=== PATIENT | female | born 1940 | race Caucasian/White ===

== ENCOUNTER → 2017-04-12 | Day surgery (SDC) | payer MEDICARE ==
[2017-04-08 15:26] LABS: ANION GAP 9.7 mmol/L (8-16); BLOOD UREA NITROGEN 15 mg/dL (7-26); BUN/CREATININE RATIO 17 (6-25); CALCIUM 9.1 mg/dL (8.4-10.2); CARBON DIOXIDE 29 mmol/L (22-29); CHLORIDE 107 mmol/L (98-107); CREATININE, SERUM 0.87 mg/dL (0.57-1.11); EST GLOMERULAR FILTRATION RATE > 60 ML/MIN (60-); GLUCOSE 96 mg/dL (74-118); POTASSIUM 3.7 mmol/L (3.5-5.1); SODIUM 142 mmol/L (136-145)
[~2017-04-12] MED LIST: ASPIRIN81 MG PO; BELLADONNA/OPIUM 60 MG SUPP PR ONE; CEFTRIAXONE SOD 1 GM VIAL ONE; CRESTOR10 MG PO; DEXAMETHASONE SOD PHOS INJ 4 MG/ML VIAL ONE; FENTANYL CITRATE/PF 100MCG/2 ML INJ ONE; GLYCOPYRROLATE INJ 1MG/ 5 ML SYR ONE; IOPAMIDOL 610MG/1ML 300 MG/ML VIAL IV ONE; LIDOCAINE HCL 2% LOCAL INJ 5 ML SDV VIAL INJ ONE; MIDAZOLAM HCL 2 MG/2 ML VIAL ONE; MULTI-VITAMIN1 EACH PO; ONDANSETRON HCL INJ 2 MG/ML VIAL ONE; PHENYLEPHRINE HCL 1% 10 MG/ML VIAL ONE; PREMARIN0.625 MG PO; PROPOFOL IV EMULSION 10 MG/ML 20 ML VIAL ONE; SEVOFLURANE INHAL SOLN 250 ML PEN BTL ONE; STOOL SOFTENER PO; XANAX; XANAX0.25 MG PO
--- NOTE | 2017-04-12 07:40 | Diagnostic Imaging Report ---
PROCEDURE:X-RAY ABDOMEN - KUB COMPARISON:CT abdomen and pelvis 02/22/2017. INDICATIONS:PRE OPERATIVE CHEST X-RAY FOR KIDNEY STONES FINDINGS: There is a non-obstructed bowel-gas pattern. Bilateral nephrolithiasis. There are no calcifications projected over the expected course of the ureters or bladder. Phleboliths are present in the pelvis. There are no acute osseous abnormalities. The lung bases are clear. CONCLUSION: Bilateral nephrolithiasis. Dictated by: Patrice Holland M.D. on 04/12/2017 at 7:49 Electronically approved by: Patrice Holland M.D. on 04/12/2017 at 7:49
--- NOTE | 2017-05-30 04:00 | Operative Report ---
DATE OF PROCEDURE: April 12, 2017 PREOPERATIVE DIAGNOSES POSTOPERATIVE DIAGNOSES OPERATIONS PERFORMED 1. Right extracorporeal shockwave lithotripsy (separate staged procedure for the right nephrolithiasis). 2. Cystourethroscopy with bilateral ureteral catheterization and retrograde ureteropyelography. 3. Interpretation of retrograde ureteropyelography. 4. Pelvic examination under anesthesia. ANESTHESIA: General. COMPLICATIONS: None. CLINICAL SUMMARY: Nicole Zhou is a 75-year-old woman with bilateral nephrolithiasis that is recurrent. She has microhematuria. She is brought for lithotripsy. She is aware the risks of bleeding, infection, injury to adjacent structures, need for additional procedures, and elected to proceed. OPERATIVE PROCEDURE IN DETAIL: Informed consent for verified. Nicole Zhou was properly identified and taken to the operating room and placed on the lithotripsy table in the supine position. Anesthesia was uneventfully begun. The patient's right mid to lower pole nephrolithiasis was localized with biplanar fluoroscopy. A total of 3000 shocks were delivered with excellent fragmentation. The patient was carefully and gently repositioned in the dorsal lithotomy position with all pressure points well-padded. Her genitalia were prepared and draped in the usual sterile fashion. The 22.5-English cystoscope sheath with obturator in place was atraumatically inserted into the patient's urethra and the bladder was drained. Panendoscopy of the urinary bladder revealed no suspicious mucosal lesions. No tumors. No stones and no diverticula. Normally positioned and configured ureteral orifices were identified. Ureteral catheter was used cannulate each ureter and retrograde ureteropyelograms were performed. Interpretation of retrograde ureteropyelography. Contrast was instilled in a retrograde fashion bilaterally. The region of lithotripsy on the right hand side was noted to be in the right mid to lower poles. The left-sided stone appeared to be located in the upper hira. It was in the lower hira on the previously performed CT scan. Unobstructed drainage was observed bilaterally fluoroscopically. The patient's bladder was then drained. The cystoscope was withdrawn. Pelvic examination under anesthesia revealed a mild cystocele with atrophic (senile) vaginitis. No abnormal palpable pelvic masses could be identified. There were no suspicious lesions. The patient was then uneventfully reversed from anesthesia and taken to the recovery room in stable condition. There were no complications to the procedure. She tolerated the procedure well. Plans will be to return the patient to the operating room at which point in time will plan on performing most likely a left ESWL. Job#: [id number] RI
== END | disposition home or self-care (01) ==
LOC: OR 08:35
PROVIDERS: ATTEND Urology
DX: N20.0 Calculus of kidney (principal); Z01.812 Encounter for preprocedural laboratory examination; N81.10 Cystocele, unspecified; N95.2 Postmenopausal atrophic vaginitis; E78.5 Hyperlipidemia, unspecified; F41.9 Anxiety disorder, unspecified; Z79.82 Long term (current) use of aspirin; Z87.891 Personal history of nicotine dependence
CPT/HCPCS: 36415; 50590; 74000; 80048; 83970; 84550; J0696; J1100; J2001; J2250; J2370; J2405; Q9967; 74018

== ENCOUNTER → 2017-05-03 | Day surgery (SDC) | payer MEDICARE ==
[~2017-05-03] MED LIST changes: -BELLADONNA/OPIUM 60 MG SUPP PR ONE; -CEFTRIAXONE SOD 1 GM VIAL ONE; -GLYCOPYRROLATE INJ 1MG/ 5 ML SYR ONE; -IOPAMIDOL 610MG/1ML 300 MG/ML VIAL IV ONE; -PHENYLEPHRINE HCL 1% 10 MG/ML VIAL ONE
--- OUTSIDE RECORDS SUMMARY | 2017-05-03 06:08 | XMS REPORT ---
Author Author [facility] Address Unknown Phone Unavailable Care Team Providers Care Yard Jacker Name Role Phone MADISON KRAMER Unavailable Unavailable Problems This patient has no known problems. Allergies, Adverse Reactions, Alerts This patient has no known allergies or adverse reactions. Medications This patient has no known medications. Results Test Description Test Time Test Comments Text Results Atomic Results Result Comments ABDOMEN-1VIEW (KUB) [place] [address] Patient Name: KOJO WILSON MR #: [id number] : 1940 Age/Sex: 76/F Req # : [id number] Adm Physician: Ordered by: MADISON KRAMER MD Report #: [id number] Location: OR Room/Bed: Procedure: [id number] DX/ABDOMEN-1VIEW (KUB) Exam Date: 04/12/17 Exam Time : 0650 REPORT STATUS: Signed PROCEDURE: X-RAY ABDOMEN - KUB COMPARISON: CT abdomen and pelvis 02/22/2017. INDICATIONS: PRE OPERATIVE CHEST X-RAY FOR KIDNEY STONES FINDINGS: There is a non- obstructed bowel-gas pattern. Bilateral nephrolithiasis. There are no calcifications projected over the expected course of the ureters or bladder. Phleboliths are present in the pelvis. There are no acute osseous abnormalities. The lung bases are clear. CONCLUSION: Bilateral nephrolithiasis. Dictated by: Taylor Canela M.D. on 04/12/2017 at 7:49 Electronically approved by: Taylor Canela M.D. on 04/12/2017 at 7:49 Dictated By: TAYLOR CANELA MD 8 Transcribed By: WANG on 04/12/17748 COPY TO: MADISON KRAMER MD CT ABDOMEN/PELVIS WO [place] [address] Patient Name: KOJO WILSON MR #: [id number] : 1940 Age/Sex: 76/F Req # : [id number] Adm Physician: Ordered by: MADISON KRAMER MD Report #: [id number] Location: CT Room/Bed: Procedure: [id number] CT/CT ABDOMEN/PELVIS WO Exam Date: 02/22/17 Exam Time: 1650 REPORT STATUS: Signed EXAM: CT Abdomen and Pelvis WITHOUT contrast INDICATION: COMPARISON: CT dated 01/18/2016 TECHNIQUE: Abdomen and pelvis were scanned utilizing a multidetector helical scanner from the lung base to the pubic symphysis without administration of IV contrast. Absence of intravenous contrast decreases sensitivity for detection of focal lesions and vascular pathology. Coronal and sagittal reformations were obtained. Renal stone protocol was performed. IV CONTRAST: None ORAL CONTRAST: Water COMPLICATIONS: None RADIATION DOSE: Total DLP: 311 mGy*cm Estimated effective dose: (DLP x 0.015 x size factor) mSv CTDIvol has been reviewed. It is below the limits set by the Radiation Protocol Committee (RPC). FINDINGS: LINES and TUBES: None. LOWER THORAX: Bibasilar scarring. Partially imaged 5 mm right middle lobe nodule versus fissural lymph node. HEPATOBILIARY: Innumerable hepatic hypodensities with internal attenuation of simple fluid, likely cysts. The largest in right hepatic lobe measures 6 x 5.8 cm. There are additional peripheral less hypodense irregular hypodensities such as in series 3, images 23 and 34. No biliary ductal dilation. GALLBLADDER: Decompressed, limiting evaluation. No wall thickening. SPLEEN: No splenomegaly. Calcified granuloma. PANCREAS: No focal masses or ductal dilatation. ADRENALS: No adrenal nodules KIDNEYS/URETERS: No hydronephrosis. Multiple bilateral renal calculi, the largest in the right midpole measures 6 mm and in left inferior pole also measured 6 mm. GI TRACT: No abnormal distention, wall thickening, or evidence of bowel obstruction. Stomach is distended with air and ingested material. Appendix is not visualized. PELVIC ORGANS/BLADDER: Unremarkable. Pelvic phleboliths. LYMPH NODES: No lymphadenopathy. VESSELS: Unremarkable. PERITONEUM / RETROPERITONEUM: No free air or fluid. BONES: Degenerative changes of spine, most notable at L4-L5. SOFT TISSUES: Unremarkable. IMPRESSION: 1. Bilateral nephrolithiasis. No evidence of obstructing urolithiasis. 2. Polycystic liver. Additional hypodense peripheral liver lesions cannot be characterized on this unenhanced study and may represent hemangiomas. If clinically indicated, liver mass protocol MRI or CT can be obtained to characterize. Signed by: Dr. Layton Del Rosario MD on 02/22/2017 5:46 PM Dictated By: LAYTON DEL ROSARIO MD 45 Transcribed By: RAQCUEL on 02/22/171745 COPY TO: MADISON KRAMER MD
--- NOTE | 2017-05-03 06:18 | Diagnostic Imaging Report ---
ABDOMEN-1VIEW (KUB) Clinical history: Preoperative kidney stones Technique: AP view abdomen Comparison: CT 02/22/2017 Findings: Hemidiaphragms are excluded from view. This superior aspect of the kidneys may be partially excluded. Nonobstructive bowel gas pattern with moderate stool burden. Bilateral nephrolithiasis is noted. The largest visualized stone measures 4 to 5 mm of the left interpolar region. Impression: Bilateral nephrolithiasis, the largest 4 to 5 mm of the left interpolar region. Signed by: Dr Sharon Browne MD on 05/03/2017 6:14 AM
--- NOTE | 2017-07-03 08:07 | Operative Report ---
DATE OF PROCEDURE: May 03, 2017 PREOPERATIVE DIAGNOSIS: Left nephrolithiasis. POSTOPERATIVE DIAGNOSIS: Left nephrolithiasis. PROCEDURE PERFORMED 1. Staged left-sided extracorporeal shock wave lithotripsy. 2. Supervision of fluoroscopy. No radiologist present. ANESTHESIA: General. COMPLICATIONS: None. CLINICAL SUMMARY: Nicole Zhou is a 76-year-old woman with bilateral recurrent nephrolithiasis. She is brought for staged ESWL. She is aware of the risks of bleeding, infection, injury to adjacent structures, need for additional procedures and elected to proceed. OPERATIVE PROCEDURE IN DETAIL: Informed consent was verified. Nicole Zhou was properly identified, taken to the operating room and placed on the lithotripsy table in the supine position. Anesthesia was uneventfully begun. The patient's left nephrolithiasis was localized with biplanar fluoroscopy. Total of 3000 shocks were delivered to the 6-mm stone in the left upper hira with fragmentation noted. The patient was then uneventfully reversed from anesthesia and taken to the recovery room in stable condition. There were no complications to the procedure. She tolerated the procedure well. Explicit postoperative instructions were given, and we will follow the patient up in the office. Job#: [id number]
== END | disposition home or self-care (01) ==
LOC: OR 06:06
PROVIDERS: ATTEND Urology
DX: N20.0 Calculus of kidney (principal); Z79.82 Long term (current) use of aspirin
CPT/HCPCS: 50590; 74018; J1100; J2001; J2250; J2405

== ENCOUNTER → 2017-07-17 | Outpatient (CLI) | payer MEDICARE ==
[~2017-07-17] MED LIST changes: -DEXAMETHASONE SOD PHOS INJ 4 MG/ML VIAL ONE; -FENTANYL CITRATE/PF 100MCG/2 ML INJ ONE; -LIDOCAINE HCL 2% LOCAL INJ 5 ML SDV VIAL INJ ONE; -MIDAZOLAM HCL 2 MG/2 ML VIAL ONE; -ONDANSETRON HCL INJ 2 MG/ML VIAL ONE; -PROPOFOL IV EMULSION 10 MG/ML 20 ML VIAL ONE; -SEVOFLURANE INHAL SOLN 250 ML PEN BTL ONE
--- NOTE | 2017-07-17 15:56 | Diagnostic Imaging Report ---
PROCEDURE:X-RAY ABDOMEN - KUB COMPARISON:[facility], DX, ABDOMEN-1VIEW (KUB), 05/03/2017, 5:32. INDICATIONS:CALCULUS OF KIDNEY FINDINGS: Bowel gas pattern: Unremarkable. No dilated bowel loops. Mild/moderate amount of stool throughout the large bowel. Calculi: Several punctate calculi over the right renal shadow measures 3 mm or less. Multiple calculi over the left renal shadow measure up to 5 mm. These are stable. No calculi along the expected course of the ureters. There are multiple phleboliths in the pelvis. Cardiomegaly: None. Free air: None. Bones: Stable mild degenerative changes of the lumbar spine. Bone island in the left pubic symphysis is stable. CONCLUSION: Bilateral intrarenal calculi are stable in size and position. No radiographic evidence of ureteral calculus. Unremarkable bowel gas pattern. Dictated by: Magdy Cervantes M.D. on 07/17/2017 at 15:58 Electronically approved by: Magdy Cervantes M.D. on 07/17/2017 at 15:58
== END ==
LOC: RAD 15:13
PROVIDERS: ATTEND Urology
DX: N20.0 Calculus of kidney (principal)
CPT/HCPCS: 74018

== ENCOUNTER → 2017-10-24 | Outpatient (CLI) | payer MEDICARE ==
--- NOTE | 2017-10-24 14:02 | Diagnostic Imaging Report ---
PROCEDURE:X-RAY ABDOMEN - KUB COMPARISON:Patients [facility], DX, ABDOMEN-1VIEW (KUB), 07/17/2017, 15:40. INDICATIONS:CALCULUS OF THE KIDNEY FINDINGS: There is a non-obstructed bowel-gas pattern. Stable radiopaque densities projecting over the right renal shadow, which measure approximately 2-3 mm. Stable radiopaque densities projecting over the left renal shadow, with the largest measuring approximately 4-5 mm. No radiopaque densities project over the expected course of ureters or bladder. Stable pelvic phleboliths. There are no acute osseous abnormalities.. CONCLUSION: Stable bilateral renal stone burden. No radiopaque densities project over the expected course of ureters or bladder. George Danielle M.D. Dictated by: George Danielle M.D. on 10/24/2017 at 14:08 Electronically approved by: George Danielle M.D. on 10/24/2017 at 14:08
== END ==
LOC: RAD 10:20
PROVIDERS: ATTEND Urology
DX: N20.0 Calculus of kidney (principal)
CPT/HCPCS: 74018

== ENCOUNTER → 2018-02-04 | Outpatient (CLI) | payer MEDICARE ==
--- NOTE | 2018-02-04 14:14 | Diagnostic Imaging Report ---
Exam: KUB. Clinical History: Calculus of kidney. Comparison: October 24, 2017 Findings: Frontal view of the abdomen demonstrates a nonobstructive bowel gas pattern with moderate retained stool. Numerous small right and left renal stones are seen. The largest is seen over the right kidney measuring 0.5 cm.No acute bone abnormality. Scattered phleboliths are seen in the lower pelvis. Impression: Numerous small right and left renal stones are seen. The largest is seen over the right kidney measuring 0.5 cm Signed by: Dr. Marlon Scott M.D. on 02/04/2018 2:11 PM
== END ==
LOC: RAD 11:00
PROVIDERS: ATTEND Urology
DX: N20.0 Calculus of kidney (principal)
CPT/HCPCS: 74018

== ENCOUNTER → 2018-05-28 | Outpatient (CLI) | payer MEDICARE ==
--- NOTE | 2018-05-28 16:54 | Diagnostic Imaging Report ---
EXAM: Abdomen 1 Views INDICATION: ^CALCULUS OF KIDNEY COMPARISON: KUB 02/04/2018. 10/24/2017. CT abdomen and pelvis 02/22/2017. FINDINGS: Moderate amount of stool in the colon. No dilated loops of small bowel. Grossly stable bilateral renal stones. They are partially obscured by stool on today's exam. No abnormal soft tissue masses. Mild degenerative changes in the lumbar spine and pelvis. IMPRESSION: Grossly stable bilateral renal stones. They are partially obscured by stool on today's exam. Signed by: Dr. Rocael Varela M.D. on 05/28/2018 4:51 PM
== END ==
LOC: RAD 15:05
PROVIDERS: ATTEND Urology
DX: N20.0 Calculus of kidney (principal)
CPT/HCPCS: 74018

== ENCOUNTER → 2018-10-01 | Outpatient (CLI) | payer MEDICARE ==
--- NOTE | 2018-10-01 15:22 | Diagnostic Imaging Report ---
Exam: KUB. Clinical History: Calculus of kidney Comparison: 05/28/2018 FINDINGS: Moderate amount of stool in the colon. No dilated loops of small bowel. Grossly stable bilateral renal stones. They are partially obscured by stool on today's exam. No abnormal soft tissue masses. Mild degenerative changes in the lumbar spine and pelvis. IMPRESSION: Grossly stable bilateral renal stones. They are partially obscured by stool on today's exam. Signed by: Dr. Marlon Scott M.D. on 10/01/2018 3:19 PM
== END ==
LOC: RAD 14:43
PROVIDERS: ATTEND Urology
DX: N20.0 Calculus of kidney (principal)
CPT/HCPCS: 74018

== ENCOUNTER → 2019-02-20 | Outpatient (CLI) | payer MEDICARE ==
--- NOTE | 2019-02-20 09:23 | Diagnostic Imaging Report ---
Abdomen, one view on 2 radiographs Clinical indication: Kidney calculus Comparison: 09/21/2018 Findings: Bilateral renal calculi are identified which are grossly unchanged from prior examination. The largest stone overlies the midpole of the right kidney and measures approximately 5 mm in diameter. The bowel gas pattern is nonobstructed. No acute osseous abnormalities. Calcified densities within the pelvis are likely phleboliths. IMPRESSION: Bilateral renal calculi, grossly unchanged from prior exam. Signed by: Inocencio Diaz MD on 02/20/2019 9:19 AM
== END ==
LOC: RAD 08:24
PROVIDERS: ATTEND Urology
DX: N20.0 Calculus of kidney (principal)
CPT/HCPCS: 74018

== ENCOUNTER → 2019-05-27 | Outpatient (CLI) | payer MEDICARE ==
--- NOTE | 2019-05-27 09:17 | Diagnostic Imaging Report ---
Exam: KUB - 2 views Indication: Renal calculus Comparison: KUB of 02/20/2019 Findings: Again seen and not significantly changed are scattered calcific densities overlying both renal silhouettes measuring up to 4 mm. No new or enlarging calculi. Nonobstructive bowel gas pattern. No free air. No acute osseous injury. Phleboliths in the pelvis. Impression: Unchanged bilateral renal calculi measure up to 4 mm. Signed by: Nick Anaya MD on 05/27/2019 9:14 AM
== END ==
LOC: RAD 08:05
PROVIDERS: ATTEND Urology
DX: N20.0 Calculus of kidney (principal)
CPT/HCPCS: 74018

== ENCOUNTER → 2019-12-02 | Outpatient (CLI) | payer MEDICARE ==
--- NOTE | 2019-12-02 08:56 | Diagnostic Imaging Report ---
Exam: KUB - 2 views Indication: Renal calculus Comparison: Multiple prior KUBs, most recently 05/27/2019 Findings: No significant interval change in bilateral renal calculi which measure up to 4 mm. Nonobstructive bowel gas pattern. No free air. Phleboliths in the pelvis. No acute osseous injury. Impression: Unchanged bilateral renal calculi up to 4 mm. Signed by: Nick Anaya MD on 12/02/2019 8:53 AM
== END ==
LOC: RAD 08:02
PROVIDERS: ATTEND Urology
DX: N20.0 Calculus of kidney (principal)
CPT/HCPCS: 74018

== ENCOUNTER → 2020-04-29 | Day surgery (SDC) | payer MEDICARE ==
[2020-04-26 12:08] LABS: BASOPHILS # (AUTO) 0.1 (0.0-0.1); BASOPHILS % 0.8 % (0.0-1.0); EOSINOPHILS # (AUTO) 0.1 (0.0-0.4); HEMATOCRIT 42.1 % (34.2-44.1); HEMOGLOBIN 13.8 g/dL (12.0-16.0); LYMPHOCYTES % 14.9 % (18.0-39.1); MEAN CORPUSCULAR HEMOGLOBIN 31.7 pg (28-32); MEAN CORPUSCULAR HGB CONC 32.8 g/dL (31-35); MEAN CORPUSCULAR VOLUME 96.6 fL (81-99); MONOCYTES # (AUTO) 0.4 (0.2-0.8); MONOCYTES % 6.2 % (4.4-11.3); NEUTROPHILS # (AUTO) 4.9 (2.1-6.9); NEUTROPHILS % 75.9 % (38.7-80.0); PLATELET COUNT 211 x10e3/uL (140-360); RED BLOOD COUNT 4.36 x10e6/uL (3.6-5.1); RED CELL DISTRIBUTION WIDTH 12.9 % (11.7-14.4)
[2020-04-26 12:29] LABS: ANION GAP 14.4 mmol/L (8-16); CALCIUM 9.1 mg/dL (8.4-10.2); CREATININE, SERUM 0.99 mg/dL (0.57-1.11); POTASSIUM 4.4 mmol/L (3.5-5.1)
[~2020-04-29] MED LIST changes: +AMPICILLIN SOD 1 GM/NS 50ML 50 ML IV ONE; +B&O 60MG R/S 60 MG SUPP PR ONE; +GENTAMICIN 80MG/NS 100 ML 100 ML IV ONE; +IOPAMIDOL 300MG/ML 50ML INFUS..BTL IV ONE
[2020-04-29 10:10] VITALS: BP 139/73
== END | disposition home or self-care (01) ==
LOC: OR 05:49
PROVIDERS: ATTEND Urology
DX: N20.0 Calculus of kidney (principal); N39.0 Urinary tract infection, site not specified; N95.2 Postmenopausal atrophic vaginitis; N81.10 Cystocele, unspecified; N81.6 Rectocele; N32.89 Other specified disorders of bladder; Z88.1 Allergy status to other antibiotic agents; Z01.810 Encounter for preprocedural cardiovascular examination; Z01.812 Encounter for preprocedural laboratory examination; Z01.818 Encounter for other preprocedural examination; Z20.822 Contact with and (suspected) exposure to COVID-19
CPT/HCPCS: 36415; 50590; 71046; 74018; 80048; 84550; 85025; 93005; J0290; J1580; Q9967; U0002

== ENCOUNTER → 2020-05-18 | Day surgery (SDC) | payer MEDICARE ==
[~2020-05-18] MED LIST changes: +ADVIL200 M1 PO; -AMPICILLIN SOD 1 GM/NS 50ML 50 ML IV ONE; -B&O 60MG R/S 60 MG SUPP PR ONE; +CEFTRIAXONE SOD 1 GM VIAL ONE; +DEXAMETHASONE SOD PHOS INJ 4 MG/ML VIAL ONE; -GENTAMICIN 80MG/NS 100 ML 100 ML IV ONE; -IOPAMIDOL 300MG/ML 50ML INFUS..BTL IV ONE; +LIDOCAINE HCL 2% JELLY 5 ML TUBE ONE; +LIDOCAINE HCL 2% LOCAL INJ 5 ML SDV VIAL INJ ONE; +ONDANSETRON HCL INJ 2MG/ML 2ML 2 MG/ML VIAL ONE; +PROPOFOL IV EMULSION 10 MG/ML 20 ML VIAL ONE; +SEVOFLURANE INHAL SOLN 250 ML PEN BTL ONE
[2020-05-18 09:30] VITALS: BP 155/76
== END | disposition home or self-care (01) ==
LOC: OR 05:20
PROVIDERS: ATTEND Urology
DX: N20.0 Calculus of kidney (principal); Z01.818 Encounter for other preprocedural examination; Z01.812 Encounter for preprocedural laboratory examination; Z20.822 Contact with and (suspected) exposure to COVID-19; Z79.82 Long term (current) use of aspirin
CPT/HCPCS: 50590; 74018; J0696; J1100; J2001 ×2; J2405; J2704; U0002

== ENCOUNTER → 2020-06-21 | Day surgery (SDC) | payer MEDICARE ==
[2020-06-16 14:22] LABS: BASOPHILS % 1.1 % (0.0-1.0); EOSINOPHILS # (AUTO) 0.2 (0.0-0.4); EOSINOPHILS % 4.1 % (0.0-6.0); HEMATOCRIT 35.8 % (34.2-44.1); HEMOGLOBIN 11.8 g/dL (12.0-16.0); LYMPHOCYTES % 27.8 % (18.0-39.1); MEAN CORPUSCULAR HEMOGLOBIN 32.2 pg (28-32); MEAN CORPUSCULAR VOLUME 97.5 fL (81-99); MONOCYTES # (AUTO) 0.3 (0.2-0.8); MONOCYTES % 9.2 % (4.4-11.3); NEUTROPHILS # (AUTO) 2.1 (2.1-6.9); NEUTROPHILS % 57.5 % (38.7-80.0); PLATELET COUNT 193 x10e3/uL (140-360); RED BLOOD COUNT 3.67 x10e6/uL (3.6-5.1); RED CELL DISTRIBUTION WIDTH 12.5 % (11.7-14.4)
[~2020-06-21] MED LIST changes: +FENTANYL CITRATE/PF 100MCG/2 ML INJ ONE; -LIDOCAINE HCL 2% JELLY 5 ML TUBE ONE; +MIDAZOLAM HCL 2 MG/2 ML VIAL ONE; +PREMARIN0.3 MG PO; +SODIUM CHLORIDE 0.9% 50ML 50 ML ONE
[2020-06-21 09:00] VITALS: BP 146/55
== END | disposition home or self-care (01) ==
LOC: OR 05:26
PROVIDERS: ATTEND Urology
DX: N20.0 Calculus of kidney (principal); Z88.1 Allergy status to other antibiotic agents; Z01.812 Encounter for preprocedural laboratory examination; Z01.818 Encounter for other preprocedural examination; Z20.822 Contact with and (suspected) exposure to COVID-19; Z79.82 Long term (current) use of aspirin
CPT/HCPCS: 36415; 50590; 74018; 85025; J0696; J1100; J2001; J2250; J2405; J2704; J3010; U0002

== ENCOUNTER → 2021-03-28 | Outpatient (CLI) | payer MEDICARE ==
[~2021-03-28] MED LIST changes: -CEFTRIAXONE SOD 1 GM VIAL ONE; -DEXAMETHASONE SOD PHOS INJ 4 MG/ML VIAL ONE; -FENTANYL CITRATE/PF 100MCG/2 ML INJ ONE; -LIDOCAINE HCL 2% LOCAL INJ 5 ML SDV VIAL INJ ONE; -MIDAZOLAM HCL 2 MG/2 ML VIAL ONE; -ONDANSETRON HCL INJ 2MG/ML 2ML 2 MG/ML VIAL ONE; -PROPOFOL IV EMULSION 10 MG/ML 20 ML VIAL ONE; -SEVOFLURANE INHAL SOLN 250 ML PEN BTL ONE; -SODIUM CHLORIDE 0.9% 50ML 50 ML ONE
== END ==
LOC: RAD 07:40
PROVIDERS: ATTEND Urology
DX: N20.0 Calculus of kidney (principal)
CPT/HCPCS: 74018

== ENCOUNTER 2021-05-22 10:30 | Inpatient (IN) | payer MEDICARE ==
[2021-05-18 11:19] LABS: BASOPHILS # (AUTO) 0.1 (0.0-0.1); BASOPHILS % 0.9 % (0.0-1.0); EOSINOPHILS # (AUTO) 0.1 (0.0-0.4); EOSINOPHILS % 1.6 % (0.0-6.0); HEMATOCRIT 42.8 % (34.2-44.1); HEMOGLOBIN 14.1 g/dL (12.0-16.0); LYMPHOCYTES % 17.4 % (18.0-39.1); MEAN CORPUSCULAR HEMOGLOBIN 31.8 pg (28-32); MEAN CORPUSCULAR HGB CONC 32.9 g/dL (31-35); MEAN CORPUSCULAR VOLUME 96.4 fL (81-99); MONOCYTES # (AUTO) 0.4 (0.2-0.8); MONOCYTES % 6.3 % (4.4-11.3); NEUTROPHILS # (AUTO) 4.1 (2.1-6.9); NEUTROPHILS % 73.6 % (38.7-80.0); PLATELET COUNT 225 x10e3/uL (140-360); RED BLOOD COUNT 4.44 x10e6/uL (3.6-5.1); RED CELL DISTRIBUTION WIDTH 12.5 % (11.7-14.4)
[2021-05-18 11:40] LABS: ANION GAP 10.1 mmol/L (8-16); CALCIUM 9.2 mg/dL (8.4-10.2); CREATININE, SERUM 0.89 mg/dL (0.57-1.11); POTASSIUM 4.1 mmol/L (3.5-5.1)
[~2021-05-22] VITALS: Ht 154.9 cm; Wt 59.4 kg
[~2021-05-22 10:30] MED LIST changes: +LISINOPRIL10 MG PO; +TYLENOL325 MG PO
[2021-05-22] MEDS ORDERED: GENTAMICIN 80MG/NS 100 ML 200 ML IV ONE (11:13)
[2021-05-22] MEDS ORDERED: PIPERACILLIN/TAZOBACTAM 3.375 GM VIAL ONE (11:13)
[2021-05-22] MEDS ORDERED: IOPAMIDOL 300MG/ML 50ML INFUS..BTL IV ONE (12:09)
[2021-05-22] MEDS ORDERED: BUPIVACAINE 0.25% 30ML SDV ONE (12:10)
[2021-05-22] MEDS ORDERED: INDIGOTINDISULFONATE SODIUM 8 MG/ML AMP IJ ONE (12:10)
[2021-05-22] MEDS ORDERED: LIDOCAINE 1% W/EPINEPHRINE 20 ML VIAL ONE (12:10)
[2021-05-22] MEDS ORDERED: GENTAMICIN SULFATE 40 MG/ML 2 ML VIAL ONE (12:10)
[2021-05-22] MEDS ORDERED: POVIDONE IODINE 0.05% 0.05 % ML PO ONE (12:32)
[2021-05-22] MEDS ORDERED: PROPOFOL IV EMULSION 10 MG/ML 20 ML VIAL ONE (12:32)
[2021-05-22] MEDS ORDERED: SEVOFLURANE INHAL SOLN 250 ML PEN BTL ONE (12:32)
[2021-05-22] MEDS ORDERED: DEXAMETHASONE SOD PHOS INJ 4 MG/ML SDV ONE (12:32)
[2021-05-22] MEDS ORDERED: ONDANSETRON HCL INJ 2MG/ML 2ML 2 MG/ML VIAL ONE (12:32)
[2021-05-22] MEDS ORDERED: LIDOCAINE HCL 2% LOCAL INJ 5 ML SDV VIAL INJ ONE (12:32)
[2021-05-22] MEDS ORDERED: KETOROLAC TROMETHAMINE 30 MG/ML VIAL ONE (12:32)
[2021-05-22] MEDS ORDERED: ESTROGENS CONJUGATED VAGINAL CR 45 GM TUBE PV ONE (12:38)
[2021-05-22] MEDS ORDERED: FENTANYL CITRATE/PF 100MCG/2 ML INJ ONE ×2 (13:07→15:05)
[2021-05-22] MEDS ORDERED: MIDAZOLAM HCL 2 MG/2 ML VIAL ONE (13:07)
[2021-05-22] MEDS ORDERED: Morphine 2mg Syringe 2 MG/ML SYR IV PRN (15:00)
[2021-05-22] MEDS ORDERED: TRAMADOL HCL 50 MG TAB PO PRN (15:00)
[2021-05-22] MEDS ORDERED: DIPHENHYDRAMINE HCL 25 MG CAP PO PRN (15:00)
[2021-05-22] MEDS ORDERED: ONDANSETRON HCL INJ 2MG/ML 2ML 2 MG/ML VIAL IV PRN (15:00)
[2021-05-22 15:55] LABS: BASOPHILS % 0.7 % (0.0-1.0); EOSINOPHILS # (AUTO) 0.1 (0.0-0.4); EOSINOPHILS % 0.8 % (0.0-6.0); HEMATOCRIT 38.8 % (34.2-44.1); HEMOGLOBIN 12.8 g/dL (12.0-16.0); LYMPHOCYTES # (AUTO) 0.7 (1.0-3.2); LYMPHOCYTES % 11.7 % (18.0-39.1); MONOCYTES # (AUTO) 0.1 (0.2-0.8); MONOCYTES % 2.4 % (4.4-11.3); NEUTROPHILS % 84.1 % (38.7-80.0); PLATELET COUNT 189 x10e3/uL (140-360); RED CELL DISTRIBUTION WIDTH 12.4 % (11.7-14.4)
[2021-05-22 16:00] VITALS: BP 126/56
[2021-05-22] MEDS ORDERED: ACETAMINOPHEN 1000 MG/100 ML IV PRN (16:00)
[2021-05-22 16:20] LABS: ANION GAP 9.1 mmol/L (8-16); CALCIUM 8.7 mg/dL (8.4-10.2); CREATININE, SERUM 0.88 mg/dL (0.57-1.11); POTASSIUM 4.1 mmol/L (3.5-5.1)
[2021-05-22] MEDS: D5.45%NS/KCL 20MEQ 1,000 ML IV SCH ×2 (16:35→22:10)
[2021-05-22] MEDS: DOCUSATE SODIUM 100 MG CAP PO SCH (16:45)
[2021-05-22 20:01] VITALS: BP 122/66
[2021-05-22] MEDS: PIPERACILLIN/TAZOBACTAM 2.25 GM in SODIUM CHLORIDE 0.9% 50ML 50 ML IV SCH (22:10)
[2021-05-23] VITALS (8 sets, daily range): BP systolic 98–123; BP diastolic 39–60
[2021-05-23 05:27] LABS: BASOPHILS % 0.1 % (0.0-1.0); HEMATOCRIT 33.3 % (34.2-44.1); HEMOGLOBIN 10.9 g/dL (12.0-16.0); LYMPHOCYTES # (AUTO) 0.7 (1.0-3.2); LYMPHOCYTES % 6.7 % (18.0-39.1); MEAN CORPUSCULAR HEMOGLOBIN 31.7 pg (28-32); MEAN CORPUSCULAR HGB CONC 32.7 g/dL (31-35); MEAN CORPUSCULAR VOLUME 96.8 fL (81-99); MONOCYTES # (AUTO) 0.5 (0.2-0.8); MONOCYTES % 5.4 % (4.4-11.3); NEUTROPHILS # (AUTO) 8.8 (2.1-6.9); NEUTROPHILS % 87.4 % (38.7-80.0); PLATELET COUNT 218 x10e3/uL (140-360); RED BLOOD COUNT 3.44 x10e6/uL (3.6-5.1); RED CELL DISTRIBUTION WIDTH 12.5 % (11.7-14.4)
[2021-05-23 06:06] LABS: ANION GAP 9.3 mmol/L (8-16); CALCIUM 8.1 mg/dL (8.4-10.2); CREATININE, SERUM 0.92 mg/dL (0.57-1.11); POTASSIUM 4.3 mmol/L (3.5-5.1)
[2021-05-23] MEDS: PIPERACILLIN/TAZOBACTAM 2.25 GM in SODIUM CHLORIDE 0.9% 50ML 50 ML IV SCH ×3 (06:47→21:36)
[2021-05-23] MEDS ORDERED: ONDANSETRON HCL 4 MG ORAL DISINTEGRATING TAB PO PRN (08:15)
[2021-05-23] MEDS: DOCUSATE SODIUM 100 MG CAP PO SCH ×3 (09:00→16:18)
[2021-05-23] MEDS: SODIUM CHLORIDE 0.9% 1000ML 1,000 ML IV SCH ×2 (09:30→21:35)
[2021-05-23] MEDS ORDERED: HYDRALAZINE HCL 25 MG TAB PO PRN (09:30)
[2021-05-23] MEDS: ACETAMINOPHEN/CODEINE 300MG - 30MG TAB PO PRN ×2 (09:49→21:36)
[2021-05-23] MEDS ORDERED: SIMVASTATIN 20 MG TAB PO SCH (21:00)
[2021-05-23] MEDS ORDERED: LISINOPRIL 10 MG TAB PO SCH (21:00)
[2021-05-24] VITALS: BP 128/54
[2021-05-24 04:00] VITALS: BP 131/79
[2021-05-24 05:00] LABS: BASOPHILS # (AUTO) 0.1 (0.0-0.1); BASOPHILS % 0.7 % (0.0-1.0); EOSINOPHILS # (AUTO) 0.1 (0.0-0.4); HEMATOCRIT 28.6 % (34.2-44.1); HEMOGLOBIN 9.4 g/dL (12.0-16.0); LYMPHOCYTES # (AUTO) 1.3 (1.0-3.2); LYMPHOCYTES % 18.4 % (18.0-39.1); MEAN CORPUSCULAR HEMOGLOBIN 32.1 pg (28-32); MEAN CORPUSCULAR HGB CONC 32.9 g/dL (31-35); MEAN CORPUSCULAR VOLUME 97.6 fL (81-99); MONOCYTES # (AUTO) 0.4 (0.2-0.8); NEUTROPHILS # (AUTO) 5.2 (2.1-6.9); NEUTROPHILS % 74.5 % (38.7-80.0); PLATELET COUNT 167 x10e3/uL (140-360); RED BLOOD COUNT 2.93 x10e6/uL (3.6-5.1); RED CELL DISTRIBUTION WIDTH 12.5 % (11.7-14.4)
[2021-05-24 05:18] LABS: ANION GAP 8.8 mmol/L (8-16); CALCIUM 8.1 mg/dL (8.4-10.2); CREATININE, SERUM 0.86 mg/dL (0.57-1.11); POTASSIUM 3.8 mmol/L (3.5-5.1)
[2021-05-24] MEDS: SODIUM CHLORIDE 0.9% 1000ML 1,000 ML IV SCH (05:28)
[2021-05-24] MEDS: PIPERACILLIN/TAZOBACTAM 2.25 GM in SODIUM CHLORIDE 0.9% 50ML 50 ML IV SCH (05:28)
[2021-05-24 08:00] VITALS: BP 125/58
[2021-05-24] MEDS: DOCUSATE SODIUM 100 MG CAP PO SCH (08:04)
[2021-05-24 09:30] VITALS: BP 125/58
== END 2021-05-24 11:42 | disposition home or self-care (01) | DRG 748 ==
LOC: OR 10:30 → PACU V 14:59 → MED/SURG 15:50
PROVIDERS: ADMIT Internal Medicine; ATTEND Internal Medicine
PROC: 0TSD4ZZ Reposition Urethra, Percutaneous Endoscopic Approach (ICD-10-PCS; 2021-05-22)
PROC: BT141ZZ Fluoroscopy of Kidneys, Ureters and Bladder using Low Osmolar Contrast (ICD-10-PCS; 2021-05-22)
PROC: 0JUC3JZ Supplement of Pelvic Region Subcutaneous Tissue and Fascia with Synthetic Substitute, Percutaneous Approach (ICD-10-PCS; principal; 2021-05-22 13:00)
DX: N81.12 Cystocele, lateral (principal); D62 Acute posthemorrhagic anemia; Q44.6 Cystic disease of liver; N39.3 Stress incontinence (female) (male); Z20.822 Contact with and (suspected) exposure to COVID-19; I11.0 Hypertensive heart disease with heart failure; E78.5 Hyperlipidemia, unspecified; M19.90 Unspecified osteoarthritis, unspecified site; K21.9 Gastro-esophageal reflux disease without esophagitis; I77.9 Disorder of arteries and arterioles, unspecified; Z87.891 Personal history of nicotine dependence
CPT/HCPCS: 36415; 71046; 74420; 80048; 83735; 84550; 85025; 93005; 94799; C1758; J1100; J1580; J1885; J2001; J2250; J2270; J2405; J2543; J3010; J7030; U0002

== ENCOUNTER → 2022-05-29 | Outpatient (CLI) | payer MEDICARE | LOC: RAD 08:30 | PROVIDERS: ATTEND Family Medicine | DX: N20.0 Calculus of kidney (principal) | CPT/HCPCS: 74018 ==